=== PATIENT | female | born 1950 | race Caucasian/White ===

== ENCOUNTER 2024-02-05 18:22 | Emergency (ER) | payer MEDICARE, OTHER, SELFPAY ==
[2024-02-05] VITALS (13 sets, daily range): BP systolic 160–204; BP diastolic 55–70; PULSE 62–93; RESP 16–21; TEMP 36.6; O2SAT 92–95
--- NOTE | ~2024-02-05 | CT_ITS ---
EXAMINATION: CTA chest PE protocol DATE: 02/05/2024 20:46 INDICATION: Shortness of breath. Elevated d-dimer. TECHNIQUE: Computed tomography angiography (CTA) of the chest was performed with 100 mL Omnipaque-350 intravenous contrast timed to evaluate the pulmonary arteries. Coronal maximum intensity projection 3D-reconstructions were created by the technologist. Automated exposure control and iterative reconst ruction technique were employed. Exam dose: 669.48 mGy-cm total exam DLP. COMPARISON: None. FINDINGS: There is diagnostic contrast enhancement of the pulmonary arteries and no evidence of pulmo nary embolism. There is aortic arch calcification. No thoracic aortic aneurysm or dissection. There is extensive calcification of the left main, left anterior descending and circumflex and right coronary arteries. Cardiomegaly. No pericardial or pleural effusion. No hilar or mediastinal mass lesion or lymphadenopathy. No pulmonary infiltrate or consolidation. Normal morphology of the adrenal glands. Multiple splenic and occasional hepatic calcified granulomas consistent with old granulomatous disease Small sliding hiatal hernia Status post lower anterior cervical spine surgical fusion. Diffuse idiopathic skeletal hyperostosis of the thoracic spine. IMPRESSION: No evidence of pulmonary embolism Reviewed, dictated and finalized at [facility]. Reviewed, dictated and finalized at [facility]. RAIL HELPER
--- NOTE | ~2024-02-05 | XR_ITS ---
XR chest 1V portable DATE: 02/05/2024 18:40 INDICATION: Chest pain and cough starting today TECHNIQUE: Portable upright AP chest on 02/05/2024 at 1836 hours COMPARISON: None FINDINGS: Heart size appears within normal range. Is aortic arch calcification. No hilar or mediastin al enlargement. Mild right upper lung infiltrate. The lungs otherwise appear clear. No pleural effusion or pulmonary vascular congestion or pneumothorax is detected. Degenerative spurring of the thoracic spine. Up. Postoperative change of the mandible. Osteopenia. IMPRESSION: Mild right upper lobe infiltrate suggesting pneumonia. Recommend follow-up chest radiogra phs to a shear complete clearing in order to exclude possible pulmonary mass lesion. Reviewed, dictated and finalized at [facility]. INE INSTALLER IMPRESSION: Mild right upper lobe infiltrate suggesting pneumonia. Recommend fo llow-up chest radiographs to a shear complete clearing in order to exclude poss ible pulmonary mass lesion.
--- NOTE | 2024-02-05 18:24 | ECG_ITS ---
Test Date: 2024-02-05 18:25:59 Measurements Intervals [place] Rate: 68 P: 10 WA: 180 QRS: 12 QRSD: 104 T: 47 QT: 408 QTc: 436 Interpretive Statements SINUS RHYTHM WITH OCCASIONAL SUPRAVENTRICULAR PREMATURE COMPLEXES PROBABLE INFERIOR MYOCARDIAL INFARCTION , PROBABLY OLD [35 ms Q WAVE IN II/aVF] No previous ECG available for comparison Electronically Signed On 02-06-2024 20:17:09 RABIES INSPECTOR by Manuel Rodriguez M.D.
--- NOTE | 2024-02-05 18:32 | ED_ITS ---
HPI - Chest Pain General Chief Complaint: Chest Pain Stated Complaint: chest pain Time Seen by Provider: 02/05/24 18:24 Source: patient and family Mode of arrival: ambulatory Limitations: dementia History of Present Illness HPI narrative: Patient is a 73-year-old female with mild dementia here with chest pain / p ressure midsternal /substernal that occurred on exertion this evening. She took a nitroglycerin and it dropped the pain from an 8 to a 1 or 2. Some associated shortness of breath. Otherwise no other complaints this evening. MD complaint: chest pain, chest heaviness and chest discomfort Pertinent past history: coronary artery disease ( Two stents and the last was 2017; she had cardiac testing the summer and was cleared ( no cath needed)) Onset (ago): hour(s) (1) Timing of current episode: constant Prior episodes: Yes Onset: during exertion and after eating Pain location: substernal Pain radiation: none Severity: mild Pain scale (0-10): 2 Quality: tightness and heaviness Relieving factors: nitroglycerin Exacerbating factors: exertion Context: other ( patient came to the emergency room after having chest pain on exertion this evening; she has CAD) Associated symptoms: dyspnea Treatment prior to arrival: nitroglycerin and other ( unknown med list at this time) Risk Factors Coronary artery disease risk factors: diabetes Thoracic aortic dissection risk factors: none Related Data Home Medications Medication Instructions Recorded Confirmed insulin glargine 100 unit/mL 36 unit subcut BID 02/05/24 02/05/24 subcutaneous solution (Lantus U-100 Insulin) nitroglycerin 0.4 mg sublingual 0.4 mg sublingual PRN PRN CHEST 02/05/24 02/05/24 tablet PAIN Allergies Allergy/AdvReac Type Severity Reaction Status Date / Time morphine Allergy Mild N&V Verified 02/05/24 18:36 codeine Allergy Unknown Verified 02/05/24 18:36 etodolac Allergy Unknown Verified 02/05/24 19:04 BUTORPHANOL TARTRATE Allergy Severe CONVULSIONS Uncoded 02/05/24 18:36 Review of Systems Review of Systems: All systems reviewed & are unremarkable except as noted in HPI and below Constitutional: Constitutional: Reports no additional constitutional complaints Eyes: Eyes: Reports no additional eye complaints ENT: Reports system reviewed and no additional complaints, except as documented Cardiovascular: Cardiovascular: Reports no additional cardiovascular complaints Respiratory: Respiratory: Reports no additional respiratory complaints Gastrointestinal: Gastrointestinal: Reports no additional gastrointestinal complaints Genitourinary: Genitourinary: Reports no additional female genitourinary complaints Musculoskeletal: Musculoskeletal: Reports no additional musculoskeletal complaints Integumentary/Breasts: Skin/Breast: Reports system reviewed and no additional complaints, except as docu Neurologic: Reports system reviewed and no additional complaints, except as documented Psychiatric: Psychiatric: Reports no additional psychiatric complaints Endocrine: Endocrine: Reports no additional endocrine complaints Hematologic/Lymphatic: Hematologic/Lymphatic: Reports no additional hematologic/lymphatic complaints Allergic/Immunologic: Allergic/Immunologic: Reports no additional allergic/immunologic complaints Exam Const: General: healthy appearing Nutritional Appearance: well nourished Orientation/consciousness: patient oriented x3 Limitations: no limitations HENMT: Head: normal to inspection Ears: external ears normal Face/Nose/Sinus: Normal external nose present Eyes: Conjunctivae: conjunctivae normal Pupils: Equal, round and reactive pupils present EOM: EOMs intact bilaterally Neck: Neck: normal visual inspection Chest: Chest palpation & inspection: normal inspection of the chest Resp: Effort & Inspection: normal respiratory effort and not labored Auscultation: clear to auscultation bilaterally and no crackles Cardio: Rate: regular rate Rhythm: regular rhythm Heart sounds: no murmurs GI: Inspection: non-distended GI Palp: Yes Soft to palpation and No Tenderness to palpation present (GI) Auscultation: normal bowel sounds : General: Yes bladder normal to palpation Back/Spine/Pelvis: Back: no CVA tenderness Skin: General skin exam: normal color Rashes: no rashes Wounds: no wounds Neuro: General: patient oriented x3 Cranial nerves: Yes Nystagmus not present Speech: normal speech Extrem: General: normal to inspection Psych: Mental Status: mental status grossly normal Affect: normal affect Attitude: cooperative Course Vital Signs Vital signs: Vital Signs Temperature 36.6 C 02/05/24 18:25 Pulse Rate 72 02/05/24 18:25 Respiratory Rate 20 02/05/24 18:25 Blood Pressure 196/70 H 02/05/24 18:25 Pulse Oximetry 95 02/05/24 18:25 Oxygen Delivery Room Air 02/05/24 18:25 Temperature 36.6 C 02/05/24 18:25 Pulse Rate 72 02/05/24 18:32 Respiratory Rate 20 02/05/24 18:25 Blood Pressure 196/70 H 02/05/24 18:25 Pulse Oximetry 95 02/05/24 18:30 Oxygen Delivery Room Air 02/05/24 18:30 MDM - Chest Pain MDM Narrative Medical decision making narrative: patient is a 73-year-old female with chest pain on exertion. Will do a cardiac workup at this time. Workup is essentially negative. No acute process is appreciated. Chest pain is completely resolved on its own. Patient would like to go home at this time and follow up with the cardiovascular doctor. She had a stress test in the past 6 months which was negative according to the patient. Two troponins are negative. Lab Data Attestation: I reviewed the patient's lab results. 02/05/24 19:16 02/05/24 19:16 Labs: Lab Results 02/05/24 02/05/24 Range/Units 19:16 22:14 WBC 10.1 (4.8-10.8) K/mm3 RBC 4.70 (4.20-5.40) M/mm3 Hgb 11.4 L (11.7-13.8) g/dL Hct 36.2 (35.0-42.0) % MCV 77.0 L (78.0-102.0) fL MCH 24.3 L (27.0-31.0) pg MCHC 31.5 L (32-36) g/dL RDW 15.5 H (11.6-14.4) % Plt Count 277 (150-420) K/mm3 MPV 11.6 (9.2-11.8) fl Immature Gran % (Auto) 0.4 H (0.0-0.0) % Neut % (Auto) 65.8 (50.0-70.0) % Lymph % (Auto) 19.8 (18.0-42.0) % [place] % (Auto) 7.8 (2.0-11.0) % Eos % (Auto) 5.5 (1.0-6.0) % Baso % (Auto) 0.7 (0.0-1.0) % Lymph # (Auto) 2.00 (1.10-4.50) K/mm3 [place] # (Auto) 0.79 (0.10-0.90) K/mm3 Eos # (Auto) 0.55 H (0.02-0.50) K/mm3 Baso # (Auto) 0.07 (0.00-0.10) K/mm3 Abs Immat Gran (auto) 0.04 H (0.00-0.00) K/mm3 Absolute Neuts (auto) 6.64 (1.70-7.20) K/mm3 Absolute Nucleated RBC 0.00 (0.00-0.00) K/mm3 Nucleated RBC % 0.0 (0-0.0) % PT 11.0 (9.50-12.1) Seconds INR 1.0 APTT 27.3 (23.9-30.70) Sec D-Dimer 0.59 H* (0.19-0.50) mg/L Sodium 136 (136-145) mmol/L Potassium 4.2 (3.5-5.1) mmol/L Chloride 100 (98-108) mmol/L Carbon Dioxide 28 (21-32) mmol/L Anion Gap 8 (4-12) mmol/L BUN 18 (7-18) mg/dL Creatinine 1.06 H (0.55-1.02) mg/dL Estim Creat Clear Calc 47 ml/min Estimated GFR 51 L (59 - ) Glucose 348 H (70-99) mg/dL Calculated Osmolality 297 H (285-295) mOsm/kg Calcium 9.2 (8.5-10.1) mg/dL Magnesium 1.2 L (1.8-2.4) mg/dL Total Bilirubin 0.5 (0.00-1.00) mg/dL AST 46 H (15-37) U/L ALT 42 (14-59) U/L Alkaline Phosphatase 80 (46-116) U/L Troponin I 15.8 16.4 (0.00-60.4) ng/L NT-Pro-B Natriuret Pep 169 H (0-125) pg/mL Total Protein 8.0 (6.4-8.2) g/dL Albumin 3.4 (3.4-5.0) g/dL Lipase 51 (16-77) U/L Urine Color Light yellow (Yellow) Urine Appearance Clear (Clear) Urine pH 6.0 (5.0-8.0) Ur Specific [place] 1.020 (1.010-1.020) Urine Protein Trace H (Negative) Urine Glucose (UA) 3+ H (Negative) Urine Ketones Negative (Negative) Ur Blood (Man) Negative (Negative) Urine Nitrate Negative (Negative) Urine Bilirubin Negative (Negative) Urine Urobilinogen 0.2 (0.2-1.0) mg/dL Leukocyte Esterase Rfl Negative (Negative) DAVID/UL Ur Squamous Epith Cells Moderate H (Few) /hpf Imaging Data Attestation: I personally reviewed and interpreted this imaging study as follows : ECG Data EKG #1: Attestation: I personally reviewed and interpreted this ECG as follows: ECG completion date: 02/05/24 ECG completion time: 19:06 EKG Interpretation: normal rate, sinus rhythm, PACs, non-specific ST changes, normal QRS, normal QT and NL axis Discharge Plan Discharge Clinical Impression: Chest pain Qualifiers: Chest pain type: precordial pain Qualified Code(s): R07.2 - Precordial pain Patient Disposition: Home, Self-Care Condition: Stable Instructions: Chest Pain (ED) Additional Instructions: Please follow-up with the primary doctor in the next week. Please follow-up with Cardiovascular doctor in the next week. Come back to the ER with any further chest pain. Make sure you are taking aspirin daily and use nitrog lycerin as needed. Prescriptions: No Action insulin glargine [Lantus U-100 Insulin] 100 unit/mL solution 36 unit SUBCUT BID nitroglycerin 0.4 mg tablet, sublingual 0.4 mg sublingual PRN PRN (Reason: CHEST PAIN ) Follow-up/Referrals: Damon Boss [facility] [Student Nurse] - Time of Disposition: 22:42
[2024-02-05 19:40] LABS: Add Urine Microscopic? YES; Appearance Urine Clear (Clear); Bilirubin Urine Negative (Negative); Blood Urine Negative (Negative); Color Urine Light Yellow (Yellow); Glucose Urine UA 3+ (Negative); Ketones Urine Negative (Negative); Leukocyte Esterase Ur Negative LEU/UL (Negative); Nitrate Urine Negative (Negative); Protein Urine Trace (Negative); Urobilinogen Urine 0.2 mg/dL (0.2-1.0)
[2024-02-05 19:42] LABS: Basophils Absolute Auto 0.07 K/mm3 (0.00-0.10); Basophils Percent Auto 0.7 % (0.0-1.0); Eosinophils Absolute Auto 0.55 K/mm3 (0.02-0.50); Eosinophils Percent Auto 5.5 % (1.0-6.0); Hematocrit 36.2 % (35.0-42.0); Hemoglobin 11.4 g/dL (11.7-13.8); Immature Granulocyte Absolute 0.04 K/mm3 (0.00-0.00); Immature Granulocyte Percent A 0.4 % (0.0-0.0); Lymphocytes Percent Auto 19.8 % (18.0-42.0); Mean Corpuscular HGB Conc 31.5 g/dL (32-36); Mean Corpuscular Hemoglobin 24.3 pg (27.0-31.0); Mean Platelet Volume 11.6 fl (9.2-11.8); Monocytes Absolute Auto 0.79 K/mm3 (0.10-0.90); Monocytes Percent Auto 7.8 % (2.0-11.0); Neutrophils Absolute Auto 6.64 K/mm3 (1.70-7.20); Neutrophils Percent Auto 65.8 % (50.0-70.0); Platelet Count Result 277 K/mm3 (150-420); Red Cell Distribution Width 15.5 % (11.6-14.4); White Blood Count 10.1 K/mm3 (4.8-10.8)
[2024-02-05 19:49] LABS: Squamous Epithelial Cell Urine Moderate /hpf (Few)
[2024-02-05 19:58] LABS: Partial Thromboplastin Time 27.3 Sec (23.9-30.70)
[2024-02-05 20:09] LABS: Alanine Aminotransferase 42 U/L (14-59); Albumin Level 3.4 g/dL (3.4-5.0); Alkaline Phosphatase 80 U/L (46-116); Anion Gap 8 mmol/L (4-12); Aspartate Amino Transferase 46 U/L (15-37); Bilirubin,Total 0.5 mg/dL (0.00-1.00); Blood Urea Nitrogen 18 mg/dL (7-18); Calcium 9.2 mg/dL (8.5-10.1); Carbon Dioxide 28 mmol/L (21-32); Chloride 100 mmol/L (98-108); Estimated CRCL calculation 47 ml/min; Estimated Glomerular Filt Rate 51; Glucose 348 mg/dL (70-99); Lipase 51 U/L (16-77); Magnesium 1.2 mg/dL (1.8-2.4); NT Pro B Type Natriuretic Pept 169 pg/mL (0-125); Osmolality Calculated 297 mOsm/kg (285-295); Potassium 4.2 mmol/L (3.5-5.1); Sodium 136 mmol/L (136-145); Troponin I 15.8 ng/L (0.00-60.4)
[2024-02-05 20:13] LABS: D Dimer 0.59 mg/L (0.19-0.50)
[2024-02-05] MEDS: MAGNESIUM SULF 2 GM/WATER 50ML 2 GM/50 ML BAG IVPB (21:10)
[2024-02-05 22:37] LABS: Troponin I 16.4 ng/L (0.00-60.4)
--- NOTE | 2024-02-05 23:01 | PC.NURSE ---
urinary catheter was NOT put in patient. Care item entered in error.
== END 2024-02-05 23:06 | disposition home or self-care (01) ==
PROVIDERS: Emergency Provider Emergency Medicine; PCP Family Medicine
DX: R07.2 Precordial pain (principal); F03.90 Unspecified dementia, unspecified severity, without behavioral disturbance, psychotic disturbance, mood disturbance, and anxiety; E11.9 Type 2 diabetes mellitus without complications; I25.10 Atherosclerotic heart disease of native coronary artery without angina pectoris; Z79.4 Long term (current) use of insulin
CPT/HCPCS: 36415; 71045; 71275; 80053; 81001; 83690; 83735; 83880; 84484; 85025; 85380; 85610; 85730; 93005; 96365; 96366; 99284; J3475; Q9967

== ENCOUNTER 2024-12-10 03:46 | Day surgery (SDC) | payer MEDICARE, OTHER, SELFPAY ==
[2024-12-07 16:48] VITALS: BMI 22.5
[2024-12-10] VITALS (18 sets, daily range): BP systolic 151–181; BP diastolic 58–90; PULSE 60–76; RESP 14–20; TEMP 36.6; O2SAT 92–98; BMI 37.8
[2024-12-10 08:50] LABS: Hematocrit 37.0 % (37.0-47.0); Hemoglobin 11.4 g/dL (12.0-15.0); Immature Granulocyte Percent A 0.3 % (0-0.5); Lymphocytes Absolute Auto 2.67 K/mm3 (0.9-3.2); Mean Corpuscular HGB Conc 30.8 g/dl (32-36); Mean Corpuscular Hemoglobin 23.8 pg (26-34); Mean Corpuscular Volume 77.1 fl (80-100); Nucleated Red Blood Cells Absolute Auto 0.000 K/mm3 (0.0-0.012); Nucleated Red Blood Cells Perc 0.0 % (0.0-0.2); Platelet Count Result 327 k/mm3 (150-375); Red Blood Count 4.80 M/mm3 (4.2-5.4); White Blood Count 9.0 K/mm3 (4.5-10.0)
[2024-12-10 09:09] LABS: Anion Gap 11 mmol/L (4-12); Blood Urea Nitrogen 19 mg/dL (7-17); Calcium 9.5 mg/dL (8.4-10.2); Carbon Dioxide 22 mmol/L (22-30); Chloride 105 mmol/L (98-107); Estimated CRCL calculation 56 ml/min; Estimated Glomerular Filt Rate > 60; Glucose 143 mg/dL (65-110); Potassium 4.3 mmol/L (3.4-5.0); Sodium 138 mmol/L (137-145)
--- NOTE | 2024-12-10 09:48 | PM.IMHP ---
H&P: HPI History of Present Illness Date/Time: 12/10/24 09:48 Chief Complaint: Angina class 3 Narrative: 74-year-old woman with CAD status post PCI, diabetes, hypertension, and hyperlipidemia who has been experiencing exertional chest discomfort for which a left heart catheterization with possible PCI has been recommended. She continues to have these symptoms despite being metoprolol and isosorbide mononitrate and found these symptoms to be limiting her day-to-day activities. Review of Systems Cardiovascular: Cardiovascular: Reports as per HPI Respiratory: Respiratory: Reports as per HPI [facility] Social History Social History Smoking status: Never smoker Alcohol intake: never Substance use: never Living arrangements: with family Spiritual care concerns: No Meds Home Medications and Allergies Home Medications ?Medication ?Instructions ?Recorded ?Confirmed ?Type insulin glargine 100 unit/mL 44 unit subcut BID 02/05/24 12/10/24 History subcutaneous solution (Lantus U-100 Insulin) nitroglycerin 0.4 mg sublingual 0.4 mg sublingual PRN PRN CHEST 02/05/24 12/10/24 History tablet PAIN atorvastatin 80 mg tablet (Lipitor) 80 mg PO DAILY 12/07/24 12/10/24 History empagliflozin 25 mg tablet 12.5 mg PO DAILY 12/07/24 12/10/24 History (Jardiance) gabapentin 600 mg tablet 600 mg PO BID 12/07/24 12/10/24 History insulin aspart U-100 100 unit/mL 1 sliding scale dose subcut 12/07/24 12/10/24 History subcutaneous solution (Novolog USEASDIRECTD U-100 Insulin aspart) isosorbide mononitrate 120 mg 120 mg PO DAILY 12/07/24 12/10/24 History tablet,extended release 24 hr metformin 1,000 mg tablet 1,000 mg PO DAILY 12/07/24 12/10/24 History metoprolol tartrate 50 mg tablet 25 mg PO Q12H 12/07/24 12/10/24 History Allergies Allergy/AdvReac Type Severity Reaction Status Date / Time morphine Allergy Mild N&V Verified 12/10/24 08:32 codeine Allergy Unknown Verified 12/10/24 08:32 etodolac Allergy Unknown Verified 10/13/25 08:32 BUTORPHANOL TARTRATE Allergy Severe CONVULSIONS Uncoded 02/05/24 18:36 Vital Signs Vital Signs - 24 hr 12/10/24 08:35 Temperature 36.6 C Pulse Rate 65 Respiratory Rate 17 Blood Pressure 173/60 H Pulse Oximetry 95 Oxygen Delivery Room Air Exam Const: General: comfortable HENMT: Mouth: Yes moist mucous membranes Eyes: EOM: EOMs intact bilaterally Neck: Neck: no JVD Resp: Effort & Inspection: normal respiratory effort Auscultation: clear to auscultation bilaterally Cardio: Rate: regular rate Rhythm: regular rhythm Extrem: General: no pedal edema H&P: Results Labs Labs: Short CBC 12/10/24 Range/Units 08:45 WBC 9.0 (4.5-10.0) K/mm3 Hgb 11.4 L (12.0-15.0) g/dL Hct 37.0 (37.0-47.0) % Plt Count 327 (150-375) k/mm3 [facility] 12/10/24 08:45 Sodium 138 Potassium 4.3 Chloride 105 Carbon Dioxide 22 BUN 19 H Creatinine 0.84 Glucose 143 H Calcium 9.5 Assessment and Plan Assessment and plan (1) Angina pectoris associated with type 2 diabetes mellitus: Code(s): E11.59 - Type 2 diabetes mellitus with other circulatory complications; I20.9 - Angina pectoris, unspecified Status: Acute Plan 74-year-old woman with CAD status post PCI, diabetes, hypertension, and hyperlipidemia who has been experiencing exertional chest discomfort for which a left heart catheterization with possible PCI has been recommended Class 3 anginal symptoms -continue to have physically limiting symptoms despite isosorbide mononitrate and metoprolol -after discussion of risks, benefits, and alternatives, patient decided to proceed for with cardiac catheterization with possible PCI
--- NOTE | 2024-12-10 09:53 | WPDMODSED ---
Moderate Sedation Note-Pt Data Patient Data Allergies Allergy/AdvReac Type Severity Reaction Status Date / Time morphine Allergy Mild N&V Verified 12/10/24 08:32 codeine Allergy Unknown Verified 12/10/24 08:32 etodolac Allergy Unknown Verified 12/10/24 08:32 BUTORPHANOL TARTRATE Allergy Severe CONVULSIONS Uncoded 02/05/24 18:36 Home Medications ?Medication ?Instructions ?Recorded ?Confirmed ?Type insulin glargine 100 unit/mL 44 unit subcut BID 02/05/24 12/10/24 History subcutaneous solution (Lantus U-100 Insulin) nitroglycerin 0.4 mg sublingual 0.4 mg sublingual PRN PRN CHEST 02/05/24 12/10/24 History tablet PAIN atorvastatin 80 mg tablet (Lipitor) 80 mg PO DAILY 12/07/24 12/10/24 History empagliflozin 25 mg tablet 12.5 mg PO DAILY 12/07/24 12/10/24 History (Jardiance) gabapentin 600 mg tablet 600 mg PO BID 12/07/24 12/10/24 History insulin aspart U-100 100 unit/mL 1 sliding scale dose subcut 12/07/24 12/10/24 History subcutaneous solution (Novolog USEASDIRECTD U-100 Insulin aspart) isosorbide mononitrate 120 mg 120 mg PO DAILY 12/07/24 12/10/24 History tablet,extended release 24 hr metformin 1,000 mg tablet 1,000 mg PO DAILY 12/07/24 12/10/24 History metoprolol tartrate 50 mg tablet 25 mg PO Q12H 12/07/24 12/10/24 History Sedation/Anesthesia: No previous sedation/anesthesia problems (including family history). PMFSH Social History Social History Smoking status: Never smoker Alcohol intake: never Substance use: never Living arrangements: with family Spiritual care concerns: No Mod Sed Physical Exam Physical Exam Pre Procedural Exam: Normal: Lungs, Heart Size, Heart Rate and Heart Rhythm Hours since solid foods: 12 Hours since liquid intake: 12 Mallampati Classification: class II Internal Medicine - PN: Obj Da Vital Signs Vital Signs: Vital Signs - 24 hr 12/10/24 08:35 Temperature 36.6 C Pulse Rate 65 Respiratory Rate 17 Blood Pressure 173/60 H Pulse Oximetry 95 Oxygen Delivery Room Air Labs 12/10/24 08:45 12/10/24 08:45 Labs: Laboratory Results - last 24 hr 12/10/24 08:45 WBC 9.0 RBC 4.80 Hgb 11.4 L Hct 37.0 MCV 77.1 L MCH 23.8 L MCHC 30.8 L RDW 17.0 H Plt Count 327 MPV 10.4 Immature Gran % (Auto) 0.3 Neut % (Auto) 58.7 Lymph % (Auto) 29.7 [place] % (Auto) 7.0 Eos % (Auto) 3.7 Baso % (Auto) 0.6 Lymph # (Auto) 2.67 [place] # (Auto) 0.6 Eos # (Auto) 0.3 Baso # (Auto) 0.1 Abs Immat Gran (auto) 0.03 Absolute Neuts (auto) 5.3 Absolute Nucleated RBC 0.000 Nucleated RBC % 0.0 Sodium 138 Potassium 4.3 Chloride 105 Carbon Dioxide 22 Anion Gap 11 BUN 19 H Creatinine 0.84 Estim Creat Clear Calc 56 Estimated GFR > 60 Glucose 143 H Calcium 9.5 ASA Classification/Sedation ASA Classification/Sedation ASA Class: III Emergent: No Risks: Risks, benefits and alternatives explained and patient/family accepted plan for sedation. Patient re-evaluated immediately prior to sedation.
--- NOTE | 2024-12-10 11:13 | WPDCARDPROC ---
Cardiac Cath Procedure Note Date of procedure:: 12/10/24 Performing physician:: CATHETERIZATION LABORATORY REPORT Procedure Date: 12/10/2024 Referring Physician: Dr. Kendall Anesthesia: Versed and Fentanyl were ordered and given in my presence at 1020, procedure ended at 1109. Supervision of nurse, Lenora Urrutia monitored moderate sedation with 2mg Versed and 50mcg Fentanyl was provided for 49 minutes. Pre-op Diagnosis: Class 3 anginal Post-op Diagnosis: Class 3 angina Procedure(s): Left heart catheterization with coronary angiography Intravascular ultrasound Percutaneous coronary intervention Access Site: Right radial artery Brief History and Clinical Indications: 74-year-old woman with CAD status post PCI, diabetes, hypertension, and hyperlipidemia who has been experiencing exertional chest discomfort for which a left heart catheterization with possible PCI has been recommended All risks, benefits and alternatives to left heart catheterization with or without percutaneous coronary intervention was discussed at length with the patient. Risk of complications including but not limited to bleeding, infection, arrhythmia, stroke, worsening kidney function, blood loss, groin hematoma, limb loss, emergency coronary artery bypass grafting, and even were discussed with the patient and all questions were answered. The patient understood and wished to proceed. Time out called, patient name, date of , medical record number, allergies, procedure performed, identify Trailer Mechanic, patient and staff member concurred with accurate data, procedure carried on. Findings: LEFT HEART CATHETERIZATION FINDINGS: 1. Left main: The left main coronary artery is widely patent without any significant obstructive disease. 2. Left anterior descending: The LAD has 10-20% calcific stenosis in its proximal body. There is 1 focal area of 90% stenosis followed by another focal area of 70% stenosis in its midbody that is calcified. 3. Left circumflex: The left circumflex artery has 30% stenosis at its ostium. The proximal left circumflex has a patent stent. The OM branches have diffuse 10-20% stenosis.. 4. Right coronary artery: The RCA is a dominant vessel with diffuse 10-20% stenosis. There is a patent stent in its proximal body. The distal RCA has 20-30% stenosis. 5. Left ventricle: A. End-diastolic pressure 28 mmHg. B. LV gram deferred. C. No significant gradient across aortic valve on catheter pullback. 6. Opening AO pressure 154/68 and closing AO pressure 160/77 Description of Procedure: Informed consent signed and placed in the chart. Patient transferred to general production laborer room. Prepped and draped in usual sterile fashion. 2% lidocaine injected subcutaneously in right wrist area. 22-gauge venipuncture catheter used to access the right radial artery with the Seldinger technique. 6-FR slender sheath placed in right radial artery. Nitroglycerin 200mcg, Verapamil 2.5mg, and Heparin 5000U was given intraarterial through the sheath. J wire advanced under fluoroscopy. 5F TIG diagnostic catheter engaged Left Main Coronary Artery. 5F TIG diagnostic catheter engaged Right Coronary Artery Multiple orthogonal angiogram obtained and reviewed 5F Pigtail catheter crossed aortic valve to obtain LVEDP, LV angiogram deferred. Procedure Description for PCI: Heparin was used for anticoagulation (ACT maintained above 250) Patient loaded with heparin at 70 units/kg. 6F EBU 3.5 guide catheter was used to intubate the LMCA. 0.014 Runthrough coronary wire was passed in to the OM2 branch. Given the acute angle of the LAD take off, the guide catheter was pulled back and a second runthrough wire was then used to pass into the apical LAD. The OM2 runthrough wire was removed. The lesion was pre-dilated with a 2.5 x 10mm balloon inflated to high KRYSTIN. A 3.0 x 30mm [place] Dryden TARAN was successfully deployed into mid LAD; post dilated with a 3.5 x 12mm NC followed by a 3.5 x 8mm NC to specifically treat an area of calcified underexpansion. Intracoronary NTG was administered. Follow-up angiograms showed an good result. An IVUS catheter was then introduced showing good results with MSA >5.5mm2 throughout the stent. All intracoronary equipment was removed under fluoroscopy and final angiogram did not review any complications Pre-procedure - WALTER 3 flow Post-procedure - WALTER 3 flow Hemostasis was achieved by application of TR band. Assessment: Successful IVUS guided PCI to calcific mLAD with 3.0 x 30mm [place]er[place]den TARAN; post dilated with 3.5 x 12mm and 8mm NC to high krystin with good angiographic and IVUS results. Post Operative Condition: Stable No significant blood loss Disposition: Home Plan: DAPT for 1 year followed by ASA indefinitely. The above findings were discussed with the referring physician. Continue aggressive medical therapy and risk factor modification. Manuel Rodriguez Interventional Cardiology
[2024-12-10] MEDS: SODIUM CHLORIDE 0.9% IV 1,000 ML 125 ML IV CONT (11:56)
--- NOTE | 2024-12-10 15:45 | SUR.PHASEII ---
This RN discussed d/c info w/ pt and pt's son at this time. Pt expressed memory difficulty and RN reiterated information to son.
== END 2024-12-10 15:45 | disposition home or self-care (01) ==
PROVIDERS: PCP Physician Assistant; Visit Provider Internal Medicine
PROC: 4A023N7 Measurement of Cardiac Sampling and Pressure, Left Heart, Percutaneous Approach (ICD-10-PCS; CPT 93452; principal; 2024-12-10 10:00)
DX: I25.10 Atherosclerotic heart disease of native coronary artery without angina pectoris (principal); E11.59 Type 2 diabetes mellitus with other circulatory complications; I10 Essential (primary) hypertension; E78.5 Hyperlipidemia, unspecified; Z79.4 Long term (current) use of insulin; Z79.84 Long term (current) use of oral hypoglycemic drugs
CPT/HCPCS: 36415; 80048; 85025; 92978; 93458; A9270; C1725; C1753; C1769; C1887; C1894; C9600; J1644; J2003; J2250; J2305; J2405; J3010; J7030; J7040

== ENCOUNTER 2024-12-17 14:58 | Emergency (ER) | payer MEDICARE, OTHER, SELFPAY ==
--- NOTE | ~2024-12-17 | XR_ITS ---
EXAMINATION: XR chest 2V DATE: 12/17/2024 15:40 INDICATION: 3 days of chest pain TECHNIQUE: PA and lateral views of the chest were obtained. COMPARISON: Chest radiograph and CT dated 02/05/2024 FINDINGS: Calcified right middle lobe nodule consistent with old granulomatous disease. No other airspace opacities, pulmonary edema, pleural effusion or pneumothorax. The cardiomediastinal silhouette is normal. Coronary artery stenting. Cholecystectomy clips in right upper quadrant. Mild thoracic spondylosis with bridging osteophytes at multiple levels consistent with diffuse idiopathic skeletal hyperostosis (DISH). IMPRESSION: 1. No acute cardiopulmonary disease. Reviewed, dictated and finalized at location A.
--- NOTE | ~2024-12-17 | US_ITS ---
US venous doppler LE BI INDICATION: Pain and swelling in both lower extremities. COMPARISON: None. TECHNIQUE: The deep veins of both lower extremities were evaluated with Duplex Doppler, color Doppler, and high-resolution B-mode sonography. Evaluated veins include the common femoral, femoral, and popliteal veins. The calf veins were also evaluated. Compression and augmentation maneuvers were performed. FINDINGS: The deep veins of both lower extremities were compressible and demonstrated spontaneous phasic waveforms with an appropriate response to augmentation maneuvers. The visualized calf veins were patent. IMPRESSION: There was no sonographic evidence of deep vein thrombosis in both lower extremities. Reviewed, dictated and finalized at location S. IMPRESSION: There was no sonographic evidence of deep vein thrombosis in both lower extremi ties.
--- NOTE | ~2024-12-17 | CT_ITS ---
CTA chest PE protocol HISTORY:cp, recent heart cath, swelling BLE . COMPARISON: None. TECHNIQUE: Following the noncontrasted statistical engineer, axial images of the thorax were obtained following infusion of 100 cc of Isovue 370. Post-processing on an independent workstation was performed to reconstruct MIP images for evaluation of the thoracic vasculature. FINDINGS: There is inadequate opacification of the pulmonary arteries which limits evaluation of the distal branches. There are no acute pulmonary embolus in the main pulmonary artery and secondary branches. Small PEs in the distal branches cannot be excluded. There are no aortic aneurysm or dissection. Mild groundglass opacity are noted in the dependent lungs bilaterally. There is a calcified granuloma within the right upper lobe. No pleural effusion or pneumothorax is noted. There is no axillary, mediastinal or hilar adenopathy. Limited evaluation of the upper abdomen demonstrates no gross abnormalities. Review of bone windows demonstrates no osteoblastic or lytic lesions. IMPRESSION: No acute pulmonary embolus in the main pulmonary artery. Small PEs in the segmental branches cannot be excluded due to inadequate opacification. No acute lung findings. All CT scans at this facility are performed using low dose modulation techniques as appropriate to perform exam including the following: automated exposure control; use of iterative reconstruction technique; adjustment of the mA and/or kV according to patient size (this includes techniques or standardized protocols for targeted exams where dose is matched to indication/reason for exam). Reviewed, dictated and finalized at location S. IMPRESSION: No acute pulmonary embolus in the main pulmonary artery. Small PEs in the segme ntal branches cannot be excluded due to inadequate opacification. No acute lung findings. All CT scans at this facility are performed using low dose modulation techniqu es as appropriate to perform exam including the following: automated exposure c ontrol; use of iterative reconstruction technique; adjustment of the mA and/or kV according to patient size (this includes techniques or standardized protocol s for targeted exams where dose is matched to indication/reason for exam).
[2024-12-17 15:01] VITALS: BP 151/56; PULSE 69; RESP 16; TEMP 36.6; O2SAT 98
--- NOTE | 2024-12-17 15:01 | ECG_ITS ---
Test Date: 2024-12-17 15:18:46 Measurements Intervals [place] Rate: 63 P: 63 CT: 187 QRS: -12 QRSD: 101 T: 32 QT: 391 QTc: 403 Interpretive Statements SINUS RHYTHM LOW QRS VOLTAGE IN PRECORDIAL LEADS CONSIDER ANTERIOR INFARCT, AGE INDETERMINATE INFERIOR INFARCT, AGE INDETERMINATE BASELINE ARTIFACT- I, II AVR ABNORMAL ECG Compared to ECG 02/05/2024 18:25:59 NO SIGNIFICANT CHANGE Electronically Signed On 12-17-2024 16:08:12 CDT by hCi Chicas D.O.
[2024-12-17 15:26] LABS: Hematocrit 35.0 % (37.0-47.0); Hemoglobin 11.0 g/dL (12.0-15.0); Immature Granulocyte Percent A 0.3 % (0-0.5); Lymphocytes Absolute Auto 2.78 K/mm3 (0.9-3.2); Mean Corpuscular HGB Conc 31.4 g/dl (32-36); Mean Corpuscular Hemoglobin 24.1 pg (26-34); Mean Corpuscular Volume 76.6 fl (80-100); Nucleated Red Blood Cells Absolute Auto 0.000 K/mm3 (0.0-0.012); Nucleated Red Blood Cells Perc 0.0 % (0.0-0.2); Platelet Count Result 321 k/mm3 (150-375); Red Blood Count 4.57 M/mm3 (4.2-5.4); White Blood Count 10.0 K/mm3 (4.5-10.0)
[2024-12-17 15:40] LABS: Alanine Aminotransferase 27 U/L (6-35); Albumin Level 4.1 g/dL (3.5-5.1); Alkaline Phosphatase 105 U/L (38-126); Anion Gap 7 mmol/L (4-12); Aspartate Amino Transferase 25 U/L (14-36); Bilirubin,Total 0.4 mg/dL (0.2-1.3); Blood Urea Nitrogen 18 mg/dL (7-17); Calcium 9.0 mg/dL (8.4-10.2); Carbon Dioxide 23 mmol/L (22-30); Chloride 104 mmol/L (98-107); Estimated CRCL calculation 59 ml/min; Estimated Glomerular Filt Rate > 60; Glucose 203 mg/dL (65-110); Lipase 147 U/L (23-300); Potassium 4.3 mmol/L (3.4-5.0); Sodium 134 mmol/L (137-145); Total Protein 8.6 g/dL (6.3-8.2)
[2024-12-17 15:50] LABS: INR 1.2; Prothrombin Time 14.8 Seconds (11.1-14.7); Troponin I < 0.012 ng/mL (0.000-0.034)
[2024-12-17 15:51] LABS: Partial Thromboplastin Time 27.7 Seconds (22.3-36.8)
--- NOTE | 2024-12-17 16:50 | ED.CHESTPAIN ---
HPI - Chest Pain General Chief Complaint: Chest Pain <Lilian Elliott PA-C - Last Filed: 12/17/24 17:21> Stated Complaint: chest pain x 3 days <Lilian Elliott PA-C - Last Filed: 12/17/24 17:21> Time Seen by Provider: 12/17/24 16:50 <RAMBO Gomes Last Filed: 12/17/24 17:21> Focused HPI: Patient is a 74 y/o female who presents to the ED with c/o CP. Patient underwent cardiac catheterization on 12/[address] Rodriguez and received stent in mid LAD. Reports over the past 3 days, has been having chest pain/tightness in her L sided chest. She has been taking NTG at home and states this has been improving the pain. Denies discomfort/tightness currently. Denies SOB, cough, congestion, fever. Reports having increased swelling in BLE since yesterday. States she had previously been on Lasix, but has not been taking this since being home from the hospital. She states she forgot. States she has memory problems and not been taking most of her normal medications. She thinks she has been taking plavix and aspirin. GENERAL: Well-appearing, well-nourished, and in no acute distress. HEAD: Normocephalic, atraumatic. CHEST: Clear to auscultation. ?No respiratory distress. HEART: Regular rate and rhythm.? NEURO: ?Alert and oriented x3. Patient screened in triage and initial orders placed.? ?Additional care and disposition to be based upon?diagnostic testing and treatment. <Lilian Elliott PA-C - Last Filed: 12/17/24 17:21> Source: patient and old records reviewed <Lilian Elliott PA-C - Last Filed: 12/17/24 17:21> Mode of arrival: ambulatory <Lilian Elliott PA-C - Last Filed: 12/17/24 17:21> Limitations: no limitations <RAMBO Gomes Last Filed: 12/17/24 17:21> History of Present Illness HPI narrative: Agree with HPI <Nahum Marquez MD - Last Filed: 12/17/24 23:04> Related Data Home Medications: Home Medications ?Medication ?Instructions ?Recorded ?Confirmed ?Last Taken ?Type insulin glargine 100 unit/mL 44 unit subcut BID 02/05/24 12/10/24 12/09/24 History subcutaneous solution (Lantus U-100 Insulin) nitroglycerin 0.4 mg sublingual 0.4 mg sublingual PRN PRN CHEST 02/05/24 12/10/24 Unknown History tablet PAIN atorvastatin 80 mg tablet (Lipitor) 80 mg PO DAILY 12/07/24 12/10/24 12/09/24 History empagliflozin 25 mg tablet 12.5 mg PO DAILY 12/07/24 12/10/24 12/09/24 History (Jardiance) gabapentin 600 mg tablet 600 mg PO BID 12/07/24 12/10/24 12/09/24 History insulin aspart U-100 100 unit/mL 1 sliding scale dose subcut 12/07/24 12/10/24 12/09/24 History subcutaneous solution (Novolog USEASDIRECTD U-100 Insulin aspart) isosorbide mononitrate 120 mg 120 mg PO DAILY 12/07/24 12/10/24 12/09/24 History tablet,extended release 24 hr metoprolol tartrate 50 mg tablet 25 mg PO Q12H 12/07/24 12/10/24 12/09/24 History <Lilian Elliott PA-C - Last Filed: 12/17/24 17:21> Allergies/Adverse Reactions: Allergies Allergy/AdvReac Type Severity Reaction Status Date / Time morphine Allergy Mild N&V Verified 12/10/24 08:32 codeine Allergy Unknown Verified 12/10/24 08:32 etodolac Allergy Unknown Verified 12/10/24 08:32 BUTORPHANOL TARTRATE Allergy Severe CONVULSIONS Uncoded 02/05/24 18:36 <Lilian Elliott PA-C - Last Filed: 12/17/24 17:21> Review of Systems Review of Systems: Gen.: Denies fevers or chills Eyes: Denies eye pain or visual change ENT: Denies congestion Respiratory: As per HPI CV: As per HPI GI: Denies abdominal pain nausea, emesis or diarrhea denies burning, urgency, frequency or hematuria Musculoskeletal: Denies back pain or muscle pain Neuro: Denies numbness, tingling, weakness or focal weakness Skin: Denies rash Except as documented, all other systems reviewed and negative <Nahum Marquez MD - Last Filed: 12/17/24 23:04> [facility] Social History Social History: Social History Smoking status: Never smoker Alcohol intake: never Substance use: never Living arrangements: with family Spiritual care concerns: No <Lilian Elliott PA-C - Last Filed: 12/17/24 17:21> Exam Narrative: APPEARANCE: No acute distress, nontoxic, resting in bed EYES: EOMI HEENT: Normocephalic, atraumatic, OMM RESPIRATORY: No respiratory distress Clear to auscultation bilaterally with no rhonchi wheezing or rales. CARDIOVASCULAR: Regular rate and rhythm without murmurs rubs or gallops. ABDOMINAL: Soft, nontender, nondistended, no rebound or guarding MUSCULOSKELETAl: Moves all extremities. 2+ pitting edema to the bilateral lower extremities up to the level of the knee. NEURO: Awake and alert. Following commands, speech normal, no focal deficits SKIN:: Warm, dry. No rashes lesions or abrasions PSYCHIATRIC: Normal affect/mood, <Nahum Marquez MD - Last Filed: 12/17/24 23:04> Course Vital Signs Vital signs: Vital Signs Temperature 97.9 F 12/17/24 15:01 Pulse Rate 69 12/17/24 15:01 Respiratory Rate 16 12/17/24 15:01 Blood Pressure 151/56 H 12/17/24 15:01 Pulse Oximetry 98 12/17/24 15:01 Oxygen Delivery Room Air 12/17/24 15:01 Temperature 96.9 F L 12/17/24 19:14 Pulse Rate 70 12/17/24 19:14 Respiratory Rate 16 12/17/24 19:14 Blood Pressure 169/53 H 12/17/24 19:14 Pulse Oximetry 99 12/17/24 19:14 Oxygen Delivery Room Air 12/17/24 15:01 <Lilian Elliott PA-C - Last Filed: 12/17/24 17:21> Vital Signs Temperature 97.9 F 12/17/24 15:01 Pulse Rate 69 12/17/24 15:01 Respiratory Rate 16 12/17/24 15:01 Blood Pressure 151/56 H 12/17/24 15:01 Pulse Oximetry 98 12/17/24 15:01 Oxygen Delivery Room Air 12/17/24 15:01 Temperature 96.9 F L 12/17/24 19:14 Pulse Rate 70 12/17/24 19:14 Respiratory Rate 16 12/17/24 19:14 Blood Pressure 169/53 H 12/17/24 19:14 Pulse Oximetry 99 12/17/24 19:14 Oxygen Delivery Room Air 12/17/24 15:01 <Nahum Marquez MD - Last Filed: 12/17/24 23:04> MDM - Chest Pain MDM Narrative Medical decision making narrative: MSE by BLOSSOM in triage. <Lilian Elliott PA-C - Last Filed: 12/17/24 17:21> MSE by BLOSSOM in triage. 74-year-old female presenting for chest pain over the last few days. On initial evaluation, patient was no acute distress, afebrile, hemodynamically stable. Chest pain was nonreproducible to palpation. Heart and lungs were clear she had a mild anemia at 11 which is stable. CMP was without significant abnormalities except for some mild hyperglycemia. Initial troponin negative. Repeat troponin negative. Chest x-ray showed no acute process. CTA chest showed no evidence of PE. Venous Doppler was obtained which showed no DVT. Given the patient had a stent placed week ago, I did reach out to Cardiology, Dr. Kendall, did think the patient was okay to discharge home with follow-up tomorrow or the following day with Dr. Rodriguez, her acetaldehyde converter operator. I discussed with the patient and her family and they are agreeable to this plan. <Nahum Marquez MD - Last Filed: 12/17/24 23:04> Differential Diagnosis Differential diagnosis: Likely stable angina, unstable angina pectoris, atypical chest pain and chest pain <Nahum Marquez MD - Last Filed: 12/17/24 23:04> Medical Records Data Attestation: I reviewed the patient's medical records. <Nahum Marquez MD - Last Filed: 12/17/24 23:04> Medical records narrative: Coronary stents placed one week ago with Dr. Rodriguez <Nahum Marquez MD - Last Filed: 12/17/24 23:04> Lab Data Attestation: I reviewed the patient's lab results. <Nahum Marquez MD - Last Filed: 12/17/24 23:04> Result diagrams: 12/17/24 15:19 12/17/24 15:19 <Lilian Elliott PA-C - Last Filed: 12/17/24 17:21> Labs: Lab Results 12/17/24 12/17/24 12/17/24 Range/Units 15:19 17:58 17:59 WBC 10.0 (4.5-10.0) K/mm3 RBC 4.57 (4.2-5.4) M/mm3 Hgb 11.0 L (12.0-15.0) g/dL Hct 35.0 L (37.0-47.0) % MCV 76.6 L (80-100) fl MCH 24.1 L (26-34) pg MCHC 31.4 L (32-36) g/dl RDW 17.2 H (11.5-14.5) % Plt Count 321 (150-375) k/mm3 MPV 10.2 (7.4-10.4) fl Immature Gran % (Auto) 0.3 (0-0.5) % Neut % (Auto) 60.9 (45.5-73.1) % Lymph % (Auto) 27.9 (18.3-44.2) % [place] % (Auto) 7.3 (2.6-8.5) % Eos % (Auto) 3.0 (0-4.4) % Baso % (Auto) 0.6 (0.2-1.2) % Lymph # (Auto) 2.78 (0.9-3.2) K/mm3 [place] # (Auto) 0.7 H (0.1-0.6) K/mm3 Eos # (Auto) 0.3 (0-0.3) K/mm3 Baso # (Auto) 0.1 (0.0-0.1) K/mm3 Abs Immat Gran (auto) 0.03 (0.00-0.031) K/mm3 Absolute Neuts (auto) 6.1 (1.3-6.7) K/mm3 Absolute Nucleated RBC 0.000 (0.0-0.012) K/mm3 Nucleated RBC % 0.0 (0.0-0.2) % PT 14.8 H (11.1-14.7) Seconds INR 1.2 APTT 27.7 (22.3-36.8) Seconds Sodium 134 L (137-145) mmol/L Potassium 4.3 (3.4-5.0) mmol/L Chloride 104 (98-107) mmol/L Carbon Dioxide 23 (22-30) mmol/L Anion Gap 7 (4-12) mmol/L BUN 18 H (7-17) mg/dL Creatinine 0.79 (0.7-1.0) mg/dL Estim Creat Clear Calc 59 ml/min Estimated GFR > 60 (59 - ) Glucose 203 H (65-110) mg/dL POC Capillary Glucose (65-105) mg/dl Calcium 9.0 (8.4-10.2) mg/dL Total Bilirubin 0.4 (0.2-1.3) mg/dL AST 25 (14-36) U/L ALT 27 (6-35) U/L Alkaline Phosphatase 105 (38-126) U/L Troponin I < 0.012 < 0.012 (0.000-0.034) ng/mL NT-Pro-B Natriuret Pep 91 (19.9-100) pg/mL Total Protein 8.6 H (6.3-8.2) g/dL Albumin 4.1 (3.5-5.1) g/dL Lipase 147 (23-300) U/L 10/20/25 Range/Units 18:36 WBC (4.5-10.0) K/mm3 RBC (4.2-5.4) M/mm3 Hgb (12.0-15.0) g/dL Hct (37.0-47.0) % MCV (80-100) fl MCH (26-34) pg MCHC (32-36) g/dl RDW (11.5-14.5) % Plt Count (150-375) k/mm3 MPV (7.4-10.4) fl Immature Gran % (Auto) (0-0.5) % Neut % (Auto) (45.5-73.1) % Lymph % (Auto) (18.3-44.2) % [place] % (Auto) (2.6-8.5) % Eos % (Auto) (0-4.4) % Baso % (Auto) (0.2-1.2) % Lymph # (Auto) (0.9-3.2) K/mm3 [place] # (Auto) (0.1-0.6) K/mm3 Eos # (Auto) (0-0.3) K/mm3 Baso # (Auto) (0.0-0.1) K/mm3 Abs Immat Gran (auto) (0.00-0.031) K/mm3 Absolute Neuts (auto) (1.3-6.7) K/mm3 Absolute Nucleated RBC (0.0-0.012) K/mm3 Nucleated RBC % (0.0-0.2) % PT (11.1-14.7) Seconds INR APTT (22.3-36.8) Seconds Sodium (137-145) mmol/L Potassium (3.4-5.0) mmol/L Chloride (98-107) mmol/L Carbon Dioxide (22-30) mmol/L Anion Gap (4-12) mmol/L BUN (7-17) mg/dL Creatinine (0.7-1.0) mg/dL Estim Creat Clear Calc ml/min Estimated GFR (59 - ) Glucose (65-110) mg/dL POC Capillary Glucose 75 (65-105) mg/dl Calcium (8.4-10.2) mg/dL Total Bilirubin (0.2-1.3) mg/dL AST (14-36) U/L ALT (6-35) U/L Alkaline Phosphatase (38-126) U/L Troponin I (0.000-0.034) ng/mL NT-Pro-B Natriuret Pep (19.9-100) pg/mL Total Protein (6.3-8.2) g/dL Albumin (3.5-5.1) g/dL Lipase (23-300) U/L <Lilian Elliott PA-C - Last Filed: 12/17/24 17:21> Lab Results 12/17/24 12/17/24 12/17/24 Range/Units 15:19 17:58 17:59 WBC 10.0 (4.5-10.0) K/mm3 RBC 4.57 (4.2-5.4) M/mm3 Hgb 11.0 L (12.0-15.0) g/dL Hct 35.0 L (37.0-47.0) % MCV 76.6 L (80-100) fl MCH 24.1 L (26-34) pg MCHC 31.4 L (32-36) g/dl RDW 17.2 H (11.5-14.5) % Plt Count 321 (150-375) k/mm3 MPV 10.2 (7.4-10.4) fl Immature Gran % (Auto) 0.3 (0-0.5) % Neut % (Auto) 60.9 (45.5-73.1) % Lymph % (Auto) 27.9 (18.3-44.2) % [place] % (Auto) 7.3 (2.6-8.5) % Eos % (Auto) 3.0 (0-4.4) % Baso % (Auto) 0.6 (0.2-1.2) % Lymph # (Auto) 2.78 (0.9-3.2) K/mm3 [place] # (Auto) 0.7 H (0.1-0.6) K/mm3 Eos # (Auto) 0.3 (0-0.3) K/mm3 Baso # (Auto) 0.1 (0.0-0.1) K/mm3 Abs Immat Gran (auto) 0.03 (0.00-0.031) K/mm3 Absolute Neuts (auto) 6.1 (1.3-6.7) K/mm3 Absolute Nucleated RBC 0.000 (0.0-0.012) K/mm3 Nucleated RBC % 0.0 (0.0-0.2) % PT 14.8 H (11.1-14.7) Seconds INR 1.2 APTT 27.7 (22.3-36.8) Seconds Sodium 134 L (137-145) mmol/L Potassium 4.3 (3.4-5.0) mmol/L Chloride 104 (98-107) mmol/L Carbon Dioxide 23 (22-30) mmol/L Anion Gap 7 (4-12) mmol/L BUN 18 H (7-17) mg/dL Creatinine 0.79 (0.7-1.0) mg/dL Estim Creat Clear Calc 59 ml/min Estimated GFR > 60 (59 - ) Glucose 203 H (65-110) mg/dL POC Capillary Glucose (65-105) mg/dl Calcium 9.0 (8.4-10.2) mg/dL Total Bilirubin 0.4 (0.2-1.3) mg/dL AST 25 (14-36) U/L ALT 27 (6-35) U/L Alkaline Phosphatase 105 (38-126) U/L Troponin I < 0.012 < 0.012 (0.000-0.034) ng/mL NT-Pro-B Natriuret Pep 91 (19.9-100) pg/mL Total Protein 8.6 H (6.3-8.2) g/dL Albumin 4.1 (3.5-5.1) g/dL Lipase 147 (23-300) U/L 10/20/25 Range/Units 18:36 WBC (4.5-10.0) K/mm3 RBC (4.2-5.4) M/mm3 Hgb (12.0-15.0) g/dL Hct (37.0-47.0) % MCV (80-100) fl MCH (26-34) pg MCHC (32-36) g/dl RDW (11.5-14.5) % Plt Count (150-375) k/mm3 MPV (7.4-10.4) fl Immature Gran % (Auto) (0-0.5) % Neut % (Auto) (45.5-73.1) % Lymph % (Auto) (18.3-44.2) % [place] % (Auto) (2.6-8.5) % Eos % (Auto) (0-4.4) % Baso % (Auto) (0.2-1.2) % Lymph # (Auto) (0.9-3.2) K/mm3 [place] # (Auto) (0.1-0.6) K/mm3 Eos # (Auto) (0-0.3) K/mm3 Baso # (Auto) (0.0-0.1) K/mm3 Abs Immat Gran (auto) (0.00-0.031) K/mm3 Absolute Neuts (auto) (1.3-6.7) K/mm3 Absolute Nucleated RBC (0.0-0.012) K/mm3 Nucleated RBC % (0.0-0.2) % PT (11.1-14.7) Seconds INR APTT (22.3-36.8) Seconds Sodium (137-145) mmol/L Potassium (3.4-5.0) mmol/L Chloride (98-107) mmol/L Carbon Dioxide (22-30) mmol/L Anion Gap (4-12) mmol/L BUN (7-17) mg/dL Creatinine (0.7-1.0) mg/dL Estim Creat Clear Calc ml/min Estimated GFR (59 - ) Glucose (65-110) mg/dL POC Capillary Glucose 75 (65-105) mg/dl Calcium (8.4-10.2) mg/dL Total Bilirubin (0.2-1.3) mg/dL AST (14-36) U/L ALT (6-35) U/L Alkaline Phosphatase (38-126) U/L Troponin I (0.000-0.034) ng/mL NT-Pro-B Natriuret Pep (19.9-100) pg/mL Total Protein (6.3-8.2) g/dL Albumin (3.5-5.1) g/dL Lipase (23-300) U/L <Nahum Marquez MD - Last Filed: 12/17/24 23:04> Imaging Data Attestation: I personally reviewed and interpreted this imaging study as follows: <Nahum Marquez MD - Last Filed: 12/17/24 23:04> Radiologist's impression: Impressions Chest X-Ray 12/17/24 15:44 IMPRESSION: 1. No acute cardiopulmonary disease. Chest CTA 12/17/24 18:26 IMPRESSION: No acute pulmonary embolus in the main pulmonary artery. Small PEs in the segmental branches cannot be excluded due to inadequate opacification. No acute lung findings. All CT scans at this facility are performed using low dose modulation techniques as appropriate to perform exam including the following: automated exposure control; use of iterative reconstruction technique; adjustment of the mA and/or kV according to patient size (this includes techniques or standardized protocols for targeted exams where dose is matched to indication/reason for exam). Venous Doppler Study 12/17/24 19:21 IMPRESSION: There was no sonographic evidence of deep vein thrombosis in both lower extremities. <Nahum Marquez MD - Last Filed: 12/17/24 23:04> ECG Data EKG #1: Attestation: I personally reviewed and interpreted this ECG as follows: <Nahum Marquez MD - Last Filed: 12/17/24 23:04> ECG completion date: 12/17/24 <Nahum Marquez MD - Last Filed: 12/17/24 23:04> ECG completion time: 15:18 <Nahum Marquez MD - Last Filed: 12/17/24 23:04> Interpretation: Normal sinus rhythm rate of 63, normal axis, normal intervals, Q-waves in inferior leads poor R-wave progression, no acute ST or T-wave changes <Nahum Marquez MD - Last Filed: 12/17/24 23:04> EKG #2: Attestation: I personally reviewed and interpreted this ECG as follows: <Nahum Marquez MD - Last Filed: 12/17/24 23:04> ECG completion date: 12/17/24 <Nahum Marquez MD - Last Filed: 12/17/24 23:04> ECG completion time: 17:53 <Nahum Marquez MD - Last Filed: 12/17/24 23:04> Interpretation: Normal sinus rhythm rate of 62, normal axis, normal intervals, Q-waves in inferior leads, no acute ST or T-wave changes, no significant change from earlier. <Nahum Marquez MD - Last Filed: 12/17/24 23:04> Discharge Plan Discharge Clinical Impression: Angina pectoris associated with type 2 diabetes mellitus <RAMBO Gomes Last Filed: 12/17/24 17:21> Patient Disposition: Home <RAMBO Gomes Last Filed: 12/17/24 17:21> Condition: Stable <RAMBO Gomes Last Filed: 12/17/24 17:21> Instructions: Antibiotic Form <RAMBO Gomes Last Filed: 12/17/24 17:21> Additional Instructions: Call Dr. Rodriguez's Office tomorrow for another appointment either today or tomorrow. Return tot he ED for new or worsening symptoms. Please take your lasix/water pill as prescribed. <Lilian Elliott PA-C - Last Filed: 12/17/24 17:21> Patient Language: Citizen Of [place] <RAMBO Gomes Last Filed: 12/17/24 17:21> Prescriptions: No Action insulin glargine [Lantus U-100 Insulin] 100 unit/mL solution 44 unit SUBCUT BID nitroglycerin 0.4 mg tablet, sublingual 0.4 mg sublingual PRN PRN (Reason: CHEST PAIN ) Jardiance 25 mg tablet 12.5 mg PO DAILY metoprolol tartrate 50 mg tablet 25 mg PO Q12H atorvastatin [Lipitor] 80 mg tablet 80 mg PO DAILY gabapentin 600 mg tablet 600 mg PO BID insulin aspart U-100 [Novolog U-100 Insulin aspart] 100 unit/mL solution 1 sliding scale dose subcut USEASDIRECTD isosorbide mononitrate 120 mg tablet extended release 24 hr 120 mg PO DAILY aspirin 81 mg tablet,delayed release (DR/EC) 81 mg PO DAILY Qty: 90 3RF clopidogrel [Plavix] 75 mg tablet 75 mg PO DAILY Qty: 90 3RF metformin 1,000 mg tablet 1,000 mg PO DAILY Qty: 90 0RF Rx Instructions: take 1 tab po in the morning and 1.5 tabs po in the evening. Resume on Tuesday 12/12 <Lilian Elliott PA-C - Last Filed: 12/17/24 17:21> Follow-up/Referrals: Manuel Rodriguez MD [Physician, Interventional Cardiology] PHYSICIAN NOT ON STAFF,NONSTAFF [Non-Staff] <Lilian Elliott PA-C - Last Filed: 12/17/24 17:21>
--- NOTE | 2024-12-17 17:48 | ECG_ITS ---
Test Date: 2024-12-17 17:53:53 Measurements Intervals [place] Rate: 62 P: 76 OK: 182 QRS: -10 QRSD: 107 T: 42 QT: 386 QTc: 394 Interpretive Statements SINUS RHYTHM CONSIDER ANTERIOR INFARCT, AGE INDETERMINATE INFERIOR INFARCT, AGE INDETERMINATE ABNORMAL ECG Compared to ECG 12/17/2024 15:18:46 NO SIGNIFICANT CHANGE Electronically Signed On 12-17-2024 19:32:45 CDT by Chi Chicas D.O.
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
[2024-12-17 18:30] LABS: Troponin I < 0.012 ng/mL (0.000-0.034)
[2024-12-17 18:39] LABS: NT Pro B Type Natriuretic Pept 91 pg/mL (19.9-100)
[2024-12-17 19:14] VITALS: BP 169/53; PULSE 70; RESP 16; TEMP 36.1; O2SAT 99
== END 2024-12-17 21:00 | disposition home or self-care (01) ==
PROVIDERS: Emergency Medicine; Physician Assistant; Emergency Provider Student in an Organized Health Care Education/Training Program; PCP Physician Assistant
DX: I20.89 Other forms of angina pectoris (principal); E11.9 Type 2 diabetes mellitus without complications; R94.31 Abnormal electrocardiogram [ECG] [EKG]; Z95.5 Presence of coronary angioplasty implant and graft; Z79.4 Long term (current) use of insulin; T50.906A Underdosing of unspecified drugs, medicaments and biological substances, initial encounter; Z91.130 Patient's unintentional underdosing of medication regimen due to age-related debility; R60.0 Localized edema; D64.9 Anemia, unspecified
CPT/HCPCS: 36415; 71046; 71275; 80053; 82948; 83690; 83880; 84484; 85025; 85610; 85730; 93005; 93970; 99284; Q9967